=== PATIENT | male | born 1970 | race Caucasian/White ===

== ENCOUNTER 2023-02-09 19:40 | Emergency (ER) | payer SELFPAY ==
[2023-02-09] MEDS ORDERED: TICAGRELOR 90 MG TABLET PO ONE ×2 (19:46→19:47)
[2023-02-09] MEDS ORDERED: ASPIRIN 81 MG CHEWABLE TABLETS ONE (19:46)
[2023-02-09] MEDS ORDERED: ASPIRIN 325 MG TABLET PO ONE (19:48)
[2023-02-09] MEDS ORDERED: HEPARIN NA (PORCINE) 5,000 UNITS/ML 1ML VIAL ONE (19:53)
[2023-02-09] MEDS ORDERED: morphine CARPU-JECT 4 MG/1 ML DISP.SYRIN IVPUSH ONE (19:59)
[2023-02-09] MEDS ORDERED: morphine SULFATE 4 MG/ML VIAL ONE (19:59)
[2023-02-09] MEDS ORDERED: TICAGRELOR 90 MG TABLET PO SCH (20:00)
[2023-02-09] MEDS: TICAGRELOR 90 MG TABLET PO ONE (20:00)
[2023-02-09] MEDS ORDERED: HEPARIN NA (PORCINE) 5,000 UNITS/ML 1ML VIAL IVPUSH PRN (20:05)
[2023-02-09] MEDS ORDERED: RAPID SEQUENCE INTUBATION KIT NR ONE ×2 (20:09→20:34)
[2023-02-09] MEDS ORDERED: AMIODARONE IN DEXTROSE,ISO-OSM 150 MG/100 ML BAG ONE (20:14)
[2023-02-09 20:20] LABS: HEMATOCRIT 47.1 % (35.4-49); HEMOGLOBIN 16.5 GM/dL (11.7-16.9); MCH 29.7 pg (25.7-33.7); MEAN CELL VOLUME 84.7 fl (80-96); MEAN PLT VOLUME 10.1 fl (7.5-11.1); PLATELET COUNT 363 10^3/uL (134-434); RBC 5.55 M/mm3 (4.00-5.60); RDW 13.6 % (11.9-15.9); WHITE BLOOD COUNT 24.5 K/mm3 (4.0-10.0)
[2023-02-09 20:37] LABS: POTASSIUM 4.6 mmol/L (3.5-5.1)
[2023-02-09 20:39] LABS: ALBUMIN 4.7 g/dl (3.4-5.0); CALCIUM 9.2 mg/dL (8.5-10.1); MAGNESIUM 2.2 mg/dL (1.8-2.4)
[2023-02-09 20:42] LABS: CREATININE 1.5 mg/dL (0.55-1.3)
[2023-02-09 20:44] LABS: BILIRUBIN,TOTAL 0.8 mg/dL (0.2-1)
[2023-02-09 20:46] VITALS: BP 135/81; PULSE 60; RESP 22; BMI 26.6
[2023-02-09 21:12] LABS: BLOOD UREA NITROGEN 14.7 mg/dL (7-18); TOT PROT 8.3 g/dl (6.4-8.2)
[2023-02-09 21:17] LABS: ANISOCYTOSIS 0; MACROCYTOSIS 0
== END 2023-02-09 20:55 | disposition short-term general hospital (02) ==
LOC: JER 19:40
PROC: 3E033GC Introduction of Other Therapeutic Substance into Peripheral Vein, Percutaneous Approach (ICD-10-PCS; principal; 2023-02-09)
PROC: 3E033GC Introduction of Other Therapeutic Substance into Peripheral Vein, Percutaneous Approach (ICD-10-PCS; 2023-02-09)
DX: R07.9 Chest pain, unspecified (principal); R06.02 Shortness of breath; R00.0 Tachycardia, unspecified; I21.3 ST elevation (STEMI) myocardial infarction of unspecified site
CPT/HCPCS: 36415; 80053; 83735; 84484; 85025; 93005; 93010; 99291; J1644